=== PATIENT | male | born 2000 | race African-American/Black ===

== ENCOUNTER 2022-01-20 19:04 | Emergency (ER) | payer OTHER ==
[~2022-01-20] VITALS: Ht 177.8 cm; Wt 85.0 kg
[2022-01-20 20:00] VITALS: BP 139/65
[2022-01-20] MEDS ORDERED: ALPRAZOLAM 0.5 MG TABLET PO ONE (22:15)
== END 2022-01-20 23:17 | disposition home or self-care (01) ==
LOC: ER 19:04
DX: F41.9 Anxiety disorder, unspecified (principal); F32.A Depression, unspecified; F43.10 Post-traumatic stress disorder, unspecified
CPT/HCPCS: 93005; 99283